=== PATIENT | male | born 1980 | race Caucasian/White ===

== ENCOUNTER → 2020-10-28 | Outpatient (CLI) | payer BC ==
[~2020-10-28] MED LIST: MPR22T TP; SULF1TAB38 PO; [UNRECOGNIZED DRUG - REMARK]
--- NOTE | 2020-10-28 17:01 | Diagnostic Imaging Report ---
PA chest at 2:19. Indication: Chest pain There are no prior studies available for comparison. The heart size is within normal limits. There is a vague area of slight increased density overlying the right hilum. I suspect this is secondary to superimposition of the hilar markings and the rib in this area. It would be less likely that there is a mass or pneumonia in this area. If further study is desired, then followup PA and lateral chest should be obtained. The lungs are generally clear. There is no sign of failure, pneumonia or pleural effusion. The mediastinum is not widened. The osseous structures are intact. There is an air-fluid level within the stomach. Impression: 1. The area of increased density overlying the right hilum is more likely due to superimposition than to an underlying abnormality. Additional considerations as above. 2. There is no acute cardiopulmonary abnormality noted otherwise. Dictated by: Dictated on workstation # [id number]
== END ==
LOC: RAD 13:47
PROVIDERS: ATTEND Family Medicine
DX: R07.9 Chest pain, unspecified (principal); M54.14 Radiculopathy, thoracic region
CPT/HCPCS: 71045

== ENCOUNTER → 2020-11-04 | Outpatient (CLI) | payer BC ==
--- NOTE | 2020-11-04 11:46 | Diagnostic Imaging Report ---
Indication: Back and left-sided chest pain. Findings: Thoracic spinal cord has a normal volume and normal morphology and normal signal intensity with CSF circumscribing the cord at each vertebral body and disc space level. There is no paravertebral mass, hemorrhage or fluid collection. The ligamentous structures were intact. There is no disc displacement. No disc herniation. The spinal canal and neural foramina and lateral recesses all widely patent throughout. No bone contusion or marrow edema. No acute or chronic fracture. Impression: Normal MRI of the thoracic spine. Dictated by: Dictated on workstation # [id number]
== END ==
LOC: RAD 09:52
PROVIDERS: ATTEND Family Medicine
DX: M54.14 Radiculopathy, thoracic region (principal)
CPT/HCPCS: 72146

== ENCOUNTER 2020-12-26 08:28 | Outpatient (RCR) | payer BC | END 2021-01-21 09:10 | disposition home or self-care (01) | PROVIDERS: ATTEND Physician Assistant | DX: M54.12 Radiculopathy, cervical region (principal); M54.6 Pain in thoracic spine ==

== ENCOUNTER → 2021-01-26 | Outpatient (CLI) | payer BC ==
--- NOTE | 2021-01-26 17:17 | Diagnostic Imaging Report ---
PROCEDURE: MR imaging cervical spine without contrast. TECHNIQUE: Multiplanar, multisequence MR imaging of the cervical spine was performed without contrast. INDICATION: Neck pain. COMPARISON: None. FINDINGS: Normal alignment. Vertebral body heights are preserved. Normal bone marrow signal. No abnormal signal in the cervical spinal cord. Visualized paravertebral soft tissues are unremarkable. C2-C3: No spinal canal or neural foraminal narrowing. C3-C4: Uncovertebral joint hypertrophy results in mild right neural foraminal narrowing. No spinal canal narrowing. C4-C5: Normal. C5-C6: Central disc protrusion contributes to mild spinal canal and bilateral neural foraminal narrowing. C6-C7: Disc osteophyte complex results in mild spinal canal and bilateral neural foraminal narrowing. C7-T1: Normal. IMPRESSION: 1. Spondylotic changes result in no high-grade spinal canal stenosis. No high-grade neural foraminal narrowing. 2. No abnormal signal in the cervical spinal cord. 3. No acute osseous or ligamentous findings. Dictated on workstation # [id number]
== END ==
LOC: RAD 16:15
PROVIDERS: ATTEND Orthopaedic Surgery Orthopaedic Surgery of the Spine
DX: M50.222 Other cervical disc displacement at C5-C6 level (principal); M48.02 Spinal stenosis, cervical region; M25.78 Osteophyte, vertebrae
CPT/HCPCS: 72141

== ENCOUNTER → 2022-01-07 | Outpatient (CLI) | payer BC ==
[2022-01-07 13:24] LABS: BASOPHILS % (AUTO) 0 % (0-10); EOSINOPHILS # (AUTO) 0.1 10^3/uL (0.0-0.3); EOSINOPHILS % (AUTO) 1 % (0-10); HEMATOCRIT 48 % (40-54); HEMOGLOBIN 15.7 g/dL (13.3-17.7); LYMPHOCYTES # (AUTO) 2.4 10^3/uL (1.0-4.0); LYMPHOCYTES % (AUTO) 30 % (12-44); MEAN CORPUSCULAR HEMOGLOBIN 28 pg (25-34); MEAN CORPUSCULAR HGB CONC 33 g/dL (32-36); MEAN CORPUSCULAR VOLUME 85 fL (80-99); MONOCYTES # (AUTO) 0.8 10^3/uL (0.0-1.0); MONOCYTES % (AUTO) 10 % (0-12); NEUTROPHILS # (AUTO) 4.4 10^3/uL (1.8-7.8); NEUTROPHILS % (AUTO) 57 % (42-75); PLATELET COUNT 354 10^3/uL (130-400); WHITE BLOOD COUNT 7.7 10^3/uL (4.3-11.0)
[2022-01-07 14:03] LABS: ALANINE AMINOTRANSFERASE 37 U/L (0-55); ALBUMIN 4.2 GM/DL (3.2-4.5); ALKALINE PHOSPHATASE 67 U/L (40-136); BILIRUBIN,TOTAL 0.6 MG/DL (0.1-1.0); BUN/CREATININE RATIO 13; CALCIUM 9.1 MG/DL (8.5-10.1); CARBON DIOXIDE 22 MMOL/L (21-32); CHLORIDE 108 MMOL/L (98-107); CREATININE SERUM 0.92 MG/DL (0.60-1.30); GFR ESTIMATED 106; GLUCOSE 97 MG/DL (70-105); POTASSIUM 4.4 MMOL/L (3.6-5.0); SODIUM 139 MMOL/L (135-145); TOTAL PROTEIN 7.3 GM/DL (6.4-8.2)
[2022-01-07 14:11] LABS: CREATINE KINASE MB 0.6 NG/ML (<6.6)
== END ==
LOC: LAB
PROVIDERS: ATTEND Physician Assistant
DX: R07.89 Other chest pain (principal); U09.9 Post COVID-19 condition, unspecified
CPT/HCPCS: 36415; 80053; 82553; 83874; 84484; 85025; 85379

== ENCOUNTER → 2022-07-23 | Outpatient (CLI) | payer BC ==
--- NOTE | 2022-07-23 10:16 | Diagnostic Imaging Report ---
TECHNIQUE: Focused ultrasound of the left neck was performed. COMPARISON: None. REASON FOR EXAM: Red lump on the left neck. FINDINGS: A heterogeneous area with central decreased echogenicity is seen in the area of palpable abnormality measuring 1.1 x 0.3 x 1.1 cm. Slight increased vascularity is seen in this area. IMPRESSION: 1. Findings suggestive of a small area of phlegmon in the superficial soft tissues of the left neck. No drainable abscess is seen. Dictated by: Dictated on workstation # [id number]
== END ==
LOC: RAD 09:00
PROVIDERS: ATTEND Nurse Practitioner Family
DX: R22.1 Localized swelling, mass and lump, neck (principal); R07.89 Other chest pain; M79.18 Myalgia, other site; R53.81 Other malaise; U09.9 Post COVID-19 condition, unspecified
CPT/HCPCS: 76536